=== PATIENT | male | born 1975 | race Caucasian/White ===

== ENCOUNTER 2016-11-28 18:50 | Inpatient (IN) | payer OTHER ==
[~2016-11-28] VITALS: Ht 188 cm; Wt 86.2 kg
[2016-11-28 19:29] LABS: BASOPHILS # (AUTO) 0.1 K/uL (0.0-8.0); BASOPHILS % (AUTO) 0.4 % (0.0-2.0); EOSINOPHILS # (AUTO) 0.4 K/uL (0.0-0.7); EOSINOPHILS % (AUTO) 3.2 % (0.0-7.0); HEMATOCRIT 46.9 % (36.7-47.1); HEMOGLOBIN 16.3 g/dL (12.5-16.3); LYMPHOCYTES # (AUTO) 2.5 K/uL (20.0-40.0); LYMPHOCYTES % (AUTO) 19.7 % (20.5-51.5); MEAN CORPUSCULAR HEMOGLOBIN 31.6 uug (23.8-33.4); MEAN CORPUSCULAR HGB CONC 35 g/dL (32.5-36.3); MEAN CORPUSCULAR VOLUME 90.6 fL (73.0-96.2); MONOCYTES # (AUTO) 0.8 K/uL (2.0-10.0); MONOCYTES % (AUTO) 6.6 % (0.0-11.0); NEUTROPHILS % (AUTO) 70.1 % (38.5-71.5); PLATELET COUNT (AUTO) 248 K/uL (152-348); RED BLOOD CELL COUNT(AUTO) 5.17 MIL/uL (4.06-5.63); RED CELL DISTRIBUTION WIDTH 12.6 % (12.1-16.2); WHITE BLOOD COUNT (AUTO) 12.8 K/uL (3.6-10.2)
[2016-11-28 19:33] LABS: CALCIUM 9.7 mg/dL (8.5-10.1); CREATININE 1.1 mg/dL (0.6-1.3); POTASSIUM 4.1 mmol/L (3.5-5.1)
[2016-11-28 19:45] LABS: ALBUMIN 4.2 g/dL (3.4-5.0); BILIRUBIN,DIRECT 0.1 mg/dL (0.0-0.2); BILIRUBIN,TOTAL 0.6 mg/dL (0.2-1.0); TOTAL PROTEIN, SERUM 7.3 g/dL (6.4-8.2)
[2016-11-28] MEDS ORDERED: HYDROCODONE/APAP 5-325MG TABLET PO PRN (23:30)
[2016-11-28] MEDS ORDERED: MAGNESIUM HYDROXIDE 30 ML LIQUID UDC PO PRN (23:30)
[2016-11-28] MEDS ORDERED: Z GUARD REMEDY PASTE 57 GM TUBE TOP PRN (23:30)
[2016-11-28] MEDS ORDERED: MORPHINE SULFATE 2 MG/1 ML DISP.SYRIN IV PRN (23:30)
[2016-11-28] MEDS ORDERED: TEMAZEPAM 7.5 MG CAPSULE PO PRN (23:30)
--- NOTE | 2016-11-29 00:30 | NUR ---
Pt. admitted to TELE, under care of Dr. Larsen Belongs List completed
[2016-11-29 01:00] VITALS: BP 135/96
[2016-11-29 04:00] VITALS: BP 119/72
--- NOTE | 2016-11-29 06:08 | NUR ---
pt admitted from ER ,alert,oriented, ambulatory. chest pain resolved upon arrival to the floor,sinus rhythm on monitor.ate sandwich and slept well overnight,sinus rhythm,no ectopy. will continue to monitor.vss,afebrile
[2016-11-29 06:27] LABS: BASOPHILS # (AUTO) 0.1 K/uL (0.0-8.0); BASOPHILS % (AUTO) 0.6 % (0.0-2.0); EOSINOPHILS # (AUTO) 0.8 K/uL (0.0-0.7); EOSINOPHILS % (AUTO) 7.3 % (0.0-7.0); HEMATOCRIT 45.6 % (36.7-47.1); HEMOGLOBIN 15.7 g/dL (12.5-16.3); LYMPHOCYTES # (AUTO) 3.7 K/uL (20.0-40.0); LYMPHOCYTES % (AUTO) 33.1 % (20.5-51.5); MEAN CORPUSCULAR HEMOGLOBIN 31.1 uug (23.8-33.4); MEAN CORPUSCULAR HGB CONC 34 g/dL (32.5-36.3); MEAN CORPUSCULAR VOLUME 90.6 fL (73.0-96.2); MONOCYTES # (AUTO) 0.9 K/uL (2.0-10.0); MONOCYTES % (AUTO) 7.7 % (0.0-11.0); NEUTROPHILS # (AUTO) 5.7 K/uL (1.8-8.9); NEUTROPHILS % (AUTO) 51.3 % (38.5-71.5); PLATELET COUNT (AUTO) 239 K/uL (152-348); RED BLOOD CELL COUNT(AUTO) 5.03 MIL/uL (4.06-5.63); RED CELL DISTRIBUTION WIDTH 12.7 % (12.1-16.2); WHITE BLOOD COUNT (AUTO) 11.2 K/uL (3.6-10.2)
[2016-11-29 06:39] LABS: ALBUMIN 3.7 g/dL (3.4-5.0); BILIRUBIN,TOTAL 0.7 mg/dL (0.2-1.0); CREATININE 1.1 mg/dL (0.6-1.3); PHOSPHOROUS 4.6 mg/dL (2.5-4.9); POTASSIUM 3.8 mmol/L (3.5-5.1); TOTAL PROTEIN, SERUM 6.6 g/dL (6.4-8.2)
[2016-11-29 06:42] LABS: THYROID STIMULATING HORMONE 4.362 mIU/mL (0.358-3.740)
[2016-11-29] MEDS ORDERED: PANTOPRAZOLE SODIUM 40 MG TABLET.DR PO ONE (06:42)
[2016-11-29 06:47] LABS: CALCIUM 9.1 mg/dL (8.5-10.1)
[2016-11-29] MEDS: PANTOPRAZOLE SODIUM 40 MG TABLET.DR PO SCH (06:47)
--- NOTE | 2016-11-29 07:27 | NUR ---
PROTONIX WAS GIVEN TO THE NEW ADMISSION PATIENT BY [facility] NURSE
--- NOTE | 2016-11-29 07:47 | NUR ---
PT IS LAYING IN BED COMFORTABLY. NO S/S OF RESPIRATORY DISTRESS NOTED. NO PAIN NOTED. ALL SAFETY NEEDS ARE MET. IV INTACT/PATENT. WILL CONTINUE TO MONITOR.
[2016-11-29 11:49] VITALS: BP 130/87
[2016-11-29] MEDS ORDERED: REGADENOSON 0.4 MG/5 ML PREFILLED SYR IV ONE (13:00)
[2016-11-29] MEDS ORDERED: ONDANSETRON 4 MG/2 ML VIAL IV PRN (15:30)
[2016-11-29] MEDS: ONDANSETRON 4 MG/2 ML VIAL IV PRN ×2 (15:53→22:24)
--- NOTE | 2016-11-29 19:33 | NUR ---
PT IS LAYING IN BED COMFORTABLY. NO S/S OF RESPIRATORY DISTRESS NOTED. NO PAIN NOTED. ALL SAFETY NEEDS ARE MET.
[2016-11-29 19:59] VITALS: BP 128/95
[2016-11-29] MEDS: ACETAMINOPHEN 325 MG TABLET PO PRN (21:33)
--- NOTE | 2016-11-29 21:33 | NUR ---
C/O MILD HEADACHE, GIVEN WITH TYLENOL 650MG PO PRESCRIBED. WILL MONITOR.
--- NOTE | 2016-11-29 22:24 | NUR ---
C/O EPISODE OF EMESIS X1, FOOD PARTICLES, GIVEN ZOFRAN PRESCRIBED.
[2016-11-30] VITALS: BP 131/92
[2016-11-30 04:00] VITALS: BP 128/84
[2016-11-30] MEDS: ONDANSETRON 4 MG/2 ML VIAL IV PRN (05:53)
[2016-11-30] MEDS: ACETAMINOPHEN 325 MG TABLET PO PRN (06:08)
[2016-11-30] MEDS: PANTOPRAZOLE SODIUM 40 MG TABLET.DR PO SCH (06:08)
[2016-11-30 06:43] LABS: POTASSIUM 4.3 mmol/L (3.5-5.1)
--- NOTE | 2016-11-30 06:44 | NUR ---
PT WAS GIVEN ANOTHER DOSE OF ZOFRAN/ TYLENOL FOR C/O NAUSEA/ HEADACHE. VS CHECKED WNL. PT IS RESTING IN BED A THIS TIME. SINUS RHYTHM ON TELE. SAFETY MAINTAINED. CALL LIGHT WITHIN REACH.
--- NOTE | 2016-11-30 07:10 | NUR ---
PT RESTING IN BED, NO SIGNS OF ACUTE DISTRESS, NO COMPLAINTS OF PAIN, CALL LIGHT IN REACH, ALL SAFETY AND COMFORT MEASURES ATTENDED TOO, WILL CONTINUE TO MONITOR
[2016-11-30 07:15] LABS: BASOPHILS % (AUTO) 0.2 % (0.0-2.0); EOSINOPHILS # (AUTO) 0.5 K/uL (0.0-0.7); EOSINOPHILS % (AUTO) 3.6 % (0.0-7.0); HEMATOCRIT 49.4 % (36.7-47.1); HEMOGLOBIN 17.1 g/dL (12.5-16.3); LYMPHOCYTES # (AUTO) 3.7 K/uL (20.0-40.0); LYMPHOCYTES % (AUTO) 28.6 % (20.5-51.5); MEAN CORPUSCULAR HEMOGLOBIN 31.8 uug (23.8-33.4); MEAN CORPUSCULAR HGB CONC 35 g/dL (32.5-36.3); MEAN CORPUSCULAR VOLUME 91.7 fL (73.0-96.2); MONOCYTES # (AUTO) 0.8 K/uL (2.0-10.0); MONOCYTES % (AUTO) 6.2 % (0.0-11.0); NEUTROPHILS # (AUTO) 8.1 K/uL (1.8-8.9); NEUTROPHILS % (AUTO) 61.4 % (38.5-71.5); PLATELET COUNT (AUTO) 189 K/uL (152-348); RED BLOOD CELL COUNT(AUTO) 5.39 MIL/uL (4.06-5.63); RED CELL DISTRIBUTION WIDTH 12.7 % (12.1-16.2); WHITE BLOOD COUNT (AUTO) 13.1 K/uL (3.6-10.2)
--- NOTE | 2016-11-30 12:38 | NUR ---
DISCHARGE PROTOCOL FOLLOWED, IV TAKEN OUT WITH NO REDNESS OR IRRITATION NOTED. EDUCATION PROVIDED, PT VERBALIZED UNDERSTANDING. PT LEFT VIA WHEELCHAIR IN PRIVATE CAR WITH FRIEND.
== END 2016-11-30 12:05 | disposition home or self-care (01) | DRG 756 ==
LOC: ER 18:55 → TELE 11-29 00:25
PROVIDERS: ADMIT Family Medicine; ATTEND Internal Medicine
DX: F41.9 Anxiety disorder, unspecified (principal); I10 Essential (primary) hypertension; D72.829 Elevated white blood cell count, unspecified; J98.11 Atelectasis; F12.90 Cannabis use, unspecified, uncomplicated; Z72.0 Tobacco use
CPT/HCPCS: 36415; 70030-TC; 71010; 78452; 83735; 84100; 84443; 85025; 85730; 93005; 93307; A4663; A9502; J2405; J2785

== ENCOUNTER 2019-01-10 14:41 | Emergency (ER) | payer OTHER ==
[~2019-01-10] VITALS: Ht 188 cm; Wt 127.0 kg
[2019-01-10] MEDS ORDERED: ASPIRIN 325 MG TABLET ONE (15:41)
[2019-01-10 15:42] VITALS: BP 144/84
[2019-01-10] MEDS ORDERED: NITROGLYCERIN 0.4 MG/TAB BOTTLE SL ONE ×2 (15:42→15:45)
[2019-01-10] MEDS ORDERED: ASPIRIN 325 MG TABLET PO ONE (15:45)
[2019-01-10 15:50] LABS: BASOPHILS % (AUTO) 0.5 % (0.0-2.0); EOSINOPHILS # (AUTO) 0.2 K/uL (0.0-0.7); EOSINOPHILS % (AUTO) 3.8 % (0.0-7.0); HEMATOCRIT 45.2 % (36.7-47.1); HEMOGLOBIN 14.7 g/dL (12.5-16.3); LYMPHOCYTES # (AUTO) 1.5 K/uL (20.0-40.0); LYMPHOCYTES % (AUTO) 24.8 % (20.5-51.5); MEAN CORPUSCULAR HEMOGLOBIN 30.1 uug (23.8-33.4); MEAN CORPUSCULAR HGB CONC 33 g/dL (32.5-36.3); MEAN CORPUSCULAR VOLUME 92.5 fL (73.0-96.2); MONOCYTES # (AUTO) 0.4 K/uL (2.0-10.0); MONOCYTES % (AUTO) 7.1 % (0.0-11.0); NEUTROPHILS # (AUTO) 3.8 K/uL (1.8-8.9); NEUTROPHILS % (AUTO) 63.8 % (38.5-71.5); PLATELET COUNT (AUTO) 223 K/uL (152-348); RED BLOOD CELL COUNT(AUTO) 4.89 MIL/uL (4.06-5.63)
--- NOTE | 2019-01-10 15:50 | NUR ---
2ND DOSE OF NITRO ADMIN AT 1547. BP 131/76.
--- NOTE | 2019-01-10 15:52 | NUR ---
CHEST TIGHTNESS RELIEVED AFTER 2ND DOSE OF NITRO. VS 132/86, HR 90, RR 18, SPO2 97%
[2019-01-10 15:58] LABS: CREATININE 0.9 mg/dL (0.6-1.3); POTASSIUM 4.3 mmol/L (3.5-5.1)
[2019-01-10 16:10] LABS: BILIRUBIN,DIRECT 0.1 mg/dL (0.0-0.2); BILIRUBIN,TOTAL 0.4 mg/dL (0.2-1.0); TOTAL PROTEIN, SERUM 7.2 g/dL (6.4-8.2)
--- NOTE | 2019-01-10 16:57 | NUR ---
SUDHAKAR GRACE AT BEDSIDE FOR PT UPDATE.
--- NOTE | 2019-01-10 17:42 | NUR ---
Patient does not wish to proceed with medical care recommended by Dr. LANDRY. Patient given information related to possible complications, up to and including , which could occur as a result of leaving the hospital at this time. Patient verbalizes understanding of risks involved due to leaving against medical advice. Patient has signed AMA form. ALL BELONGINGS W/ PT. PT SELF-AMBULATED W/O DIFFICULTY. 20G IV ACCESS IN LAC REMOVED PRIOR TO D/C - INNER CANNULA INTACT.
== END 2019-01-10 17:44 | disposition left against medical advice (07) ==
LOC: ER 14:43
DX: R07.9 Chest pain, unspecified (principal); I10 Essential (primary) hypertension
CPT/HCPCS: 36415; 70030-TC; 71045; 85025; 85730; 93005; A4663